=== PATIENT | female | born 1985 | race Caucasian/White ===

== ENCOUNTER 2019-06-05 09:19 | Day surgery (SDC) | payer BC ==
[2019-06-03 13:54] LABS: Absolute Lymphocytes (CBC) 1.9 K/uL (0.7-4.9); Basophils % 0.2 % (0-1.3); Hematocrit 32.4 % (36.0-45.0); Lymphocytes % 20.3 % (15.3-44.8); MPV 8.1 fL (7.6-11.3); RBC Red Blood Cell Count 3.69 M/uL (3.86-4.86)
[2019-06-03 13:59] LABS: Potassium 4.1 mmol/L (3.5-5.1)
--- OUTSIDE RECORDS SUMMARY | 2019-06-05 09:21 | XMS REPORT ---
:1985 [facility] Organization [facility] Address [address] [place] [address] Dr. Clark [address] [place] [id number] Care Team Providers Name Role Phone Unavailable Unavailable Unavailable Problems This patient has no known problems. Allergies, Adverse Reactions, Alerts This patient has no known allergies or adverse reactions. Medications This patient has no known medications.
[2019-06-05 09:45] LABS: Specific Gravity 1.015 (1.005-1.030)
[2019-06-05] MEDS ORDERED: Ringers Lactate 1,000 ML IV ONE (09:52)
[2019-06-05] MEDS ORDERED: CEFAZOLIN/SWI 1gm 1 GM/10 ML SYR ONE (12:57)
[2019-06-05] MEDS ORDERED: propofoL 200 MG/20 ML VIAL IV ONE (14:04)
[2019-06-05] MEDS ORDERED: MIDAZOLAM HCL 2 MG/2 ML INJ ONE (14:04)
[2019-06-05] MEDS ORDERED: LIDOCAINE 1% MPF 5 ML VIAL ONE (14:04)
[2019-06-05] MEDS ORDERED: FENTANYL CITR 100 MCG/2 ML ONE (14:04)
[2019-06-05] MEDS ORDERED: KETOROLAC 30 MG/ML INJ ONE (14:05)
[2019-06-05] MEDS ORDERED: ONDANSETRON 4 MG/2 ML VIAL ONE (14:05)
--- NOTE | 2019-06-05 14:38 | P.BOP ---
Preoperative diagnosis: Mid back subcutaneous mass Postoperative diagnosis: same Primary procedure: Excisional biopsy of Mid back subcutaneous mass 5x2 cmwith layer closure Liquid Sugar Melter: Nenita Butterfield ([place]) Estimated blood loss: <10cc Specimen: mass Findings: Mid back subcutaneous deep mass 5x2 cm Anesthesia: General Complications: None Transferred to: Recovery Room Condition: Good
[2019-06-05] MEDS ORDERED: Mastisol Adhesive Liq ONE (14:42)
[2019-06-05 15:58] VITALS: BP 117/70; TEMP 97; O2SAT 100
[2019-06-05] MEDS ORDERED: CODEINE 30MG/APAP 300MG TAB ONE (16:14)
--- NOTE | 2019-06-08 04:47 | DS ---
Date of Discharge: 06/05/2019 Diagnosis: Mid talkback host subcutaneous mass. Procedure: Excisional biopsy of mid talkback host subcutaneous mass with layered closure. Disposition: Home. Activity: As tolerated. No heavy lifting. Followup: Follow up in my office in 1 week. Call for appointment [phone]. Keep area dry for 48 ho urs, then may shower. Medications: See orders. RAHAT/YOLANDA Voice ID: [id number] Report ID: [id number]
--- NOTE | 2019-06-08 04:52 | OP ---
Date of Procedure: 06/05/2019 Surgeon: Shimon Westfall MD Computer Numerical Control Machinist: Nenita Goodrich. Preoperative Diagnosis: Mid back subcutaneous mass. Postoperative Diagnosis: Mid back subcutaneous mass. Procedure: Excisional biopsy of tender mid back deep subcutaneous mass, 5 x 2 cm with layered closur e. Estimated Blood Loss: Less than 10 mL. Specimen: Mass. Findings: Deep in the subcutaneous tissue, we noticed a mass of 5 x 2 cm. Anesthesia: General plus local. Indications: This is the case of a 33-year-old patient, who comes to us with a tender mass in the mi d back area, that giving her pain and discomfort. She wants that excised. It is not on the skin. I t is not even superficial or in the subcutaneous tissue. It is deep. Benefits, alternatives, and ri sks of excisional biopsy of that mass fully explained to the patient, which include but are not limit ed to infection, bleeding, damage to adjacent structures, anesthesia complication, recurrence, WI, an d even . She also understands this may not relieve symptoms. She might need more than one surg ical intervention. She understood, signed a consent. The area of concern was marked by me and the p atient in the holding room. Description Of Procedure: Patient was brought to the operating room, placed in supine position. Ane sthesia was done without complication. The patient was placed in lateral decubitus position with pro per protection. Back area was prepped and draped in a sterile fashion. A time-out was called. We m brad an incision where we previously marked the area. Incision was carried down to deep subcutaneous tissue. We opened the fascia layer underneath that one, then we found the mass just above the muscle . Does not penetrate the muscle. The mass was carefully removed with the help of blunt dissection s o we do not leave any pieces behind. Once the mass was enucleated, we obtained hemostasis, sent the mass for evaluation, and then proceeded to close this in layers. Deep layers were closed with 0 chronometer tester azeb, then 3-0 chromic, and then Dermabond on top. Sponge count and instrument counts were correct. Patient tolerated the procedure well. Patient was sent to recovery in stable condition. RAHAT/YOLANDA Voice ID: [id number] Report ID: [id number]
== END 2019-06-05 16:25 | disposition home or self-care (01) ==
LOC: OR 09:19
PROVIDERS: ATTEND Surgery
PROC: 0JB70ZZ Excision of Back Subcutaneous Tissue and Fascia, Open Approach (ICD-10-PCS; principal; 2019-06-05 12:15)
DX: D17.1 Benign lipomatous neoplasm of skin and subcutaneous tissue of trunk (principal); I10 Essential (primary) hypertension; J45.909 Unspecified asthma, uncomplicated; E07.9 Disorder of thyroid, unspecified; F41.9 Anxiety disorder, unspecified; Z82.49 Family history of ischemic heart disease and other diseases of the circulatory system
CPT/HCPCS: 85025; 80048; 36415; 84703; 81025; 88304; 21933; J2704; J2250; J3010; J0690; J7120; J2405; 88305